=== PATIENT | male | born 1975 | race African-American/Black ===

== ENCOUNTER 2020-04-07 06:20 | Day surgery (SDC) | payer OTHER ==
[~2020-04-07] VITALS: Ht 177.8 cm; Wt 147.7 kg
[~2020-04-07 06:20] MED LIST: SODIUM CHLORIDE 0.9% 1,000 ML IV ONE; SODIUM CHLORIDE 0.9% 1,000 ML ONE
[2020-04-07] MEDS ORDERED: LIDOCAINE 4% 50 ML SOLUTION TP ONE (06:21)
[2020-04-07] MEDS ORDERED: LIDOCAINE 2% 30 ML JELLY TP ONE (06:21)
[2020-04-07] MEDS ORDERED: ALBUTEROL SULFATE 2.5 MG/0.5 ML NEB SOLUTION NEB ONE (06:21)
[2020-04-07] MEDS ORDERED: BENZOCAINE 20% 50 MCG/SPRAY 57 GM TP ONE (06:21)
[2020-04-07] MEDS ORDERED: FLUT16H NASAL (07:11)
[2020-04-07] MEDS ORDERED: AMLO-257 PO (07:11)
[2020-04-07] MEDS ORDERED: LISI-661 PO (07:11)
[2020-04-07] MEDS ORDERED: TAMS-13 PO (07:11)
[2020-04-07] MEDS ORDERED: ALLO-44 PO (07:11)
[2020-04-07] MEDS ORDERED: MethylPREDNISolone SOD SUCC 125 MG/2 ML VIAL IVP ONE (08:45)
[2020-04-07] MEDS ORDERED: MIDAZOLAM HCL 2 MG/2 ML VIAL ONE (09:07)
[2020-04-07] MEDS ORDERED: FentaNYL CITRATE-PF 100 MCG/2 ML VIAL ONE (09:07)
[2020-04-07] MEDS ORDERED: MethylPREDNISolone SOD SUCC 125 MG/2 ML VIAL ONE (09:09)
[2020-04-07] MEDS ORDERED: OXYGEN THERAPY IH SCH (20:00)
== END 2020-04-07 10:20 | disposition home or self-care (01) ==
LOC: SURGERY 06:20
PROVIDERS: ATTEND Internal Medicine Critical Care Medicine
DX: J38.4 Edema of larynx (principal); B37.0 Candidal stomatitis; Z11.59 Encounter for screening for other viral diseases
CPT/HCPCS: 31623; 31624; 71045; 87015; 87070; 87101; 87205; 87206; 87220; 87635; 88108; 88312; J2250; J2930; J3010; J7030; J7613; Z7610